=== PATIENT | male | born 1990 | race Caucasian/White ===

== ENCOUNTER 2017-01-20 18:10 | Emergency (ER) | payer BC ==
[~2017-01-20] VITALS: Ht 188 cm; Wt 87.0 kg
[2017-01-20] MEDS ORDERED: MOTRIN800 MG PO (20:39)
[2017-01-20] MEDS ORDERED: NORCO 7.5/321 TABLET PO (20:39)
[2017-01-20 20:56] VITALS: BP 135/82
== END 2017-01-20 20:57 | disposition home or self-care (01) ==
LOC: EME 18:10
PROC: 3E0234Z Introduction of Serum, Toxoid and Vaccine into Muscle, Percutaneous Approach (ICD-10-PCS; principal; 2017-01-20)
DX: S42.92XA Fracture of left shoulder girdle, part unspecified, initial encounter for closed fracture (principal); V86.59XA Driver of other special all-terrain or other off-road motor vehicle injured in nontraffic accident, initial encounter; S40.812A Abrasion of left upper arm, initial encounter; M75.32 Calcific tendinitis of left shoulder
CPT/HCPCS: 73030; 99281; 99285